=== PATIENT | male | born 1955 | race African-American/Black ===

== ENCOUNTER 2023-12-29 16:50 | Emergency (ER) | payer SELFPAY ==
[~2023-12-29] VITALS: Ht 167.6 cm; Wt 84.0 kg
[2023-12-29 16:54] VITALS: O2SAT 98
[2023-12-29 17:19] VITALS: BP 124/77; PULSE 80; RESP 16; TEMP 98.3
== END 2023-12-29 17:25 | disposition home or self-care (01) ==
LOC: ER 16:50
DX: F10.129 Alcohol abuse with intoxication, unspecified (principal); Y90.9 Presence of alcohol in blood, level not specified
CPT/HCPCS: 99283